=== PATIENT | female | born 1985 | race Caucasian/White ===

== ENCOUNTER 2018-03-22 22:53 | Emergency (ER) | payer BC, OTHER ==
--- NOTE | 2018-03-22 22:58 | ER Report ---
History and Physical Time Seen By MD: 22:58 HPI/ROS CHIEF COMPLAINT: Vaginal bleeding HISTORY OF PRESENT ILLNESS: 32-year-old female presents ambulatory to the ER complaining of vaginal bleeding. Patient states she is 13 weeks . She is concerned that her is not going right. She began spotting 12 hours ago. Tonight she had a large gush of blood. She is concerned she may be miscarriage in. Patient is from [facility]. She is followed by [place] [facility]. REVIEW OF SYSTEMS: Respiratory: No cough, no dyspnea. Cardiovascular: No chest pain, no palpitations. Gastrointestinal: As above Musculoskeletal: No back pain. Allergies: Coded Allergies: No Known Drug Allergies (Unverified , 03/22/18) Home Meds Active Scripts Hydrocodone Bit/Acetaminophen (NORCO 5-325 TABLET) 1 Each Tablet, 1 EACH PO Q4H PRN for PAIN, #15 TAB Prov:SHARRI DAWN DO 03/23/18 Reported Medications Levothyroxine Sodium (LEVOTHYROXINE SODIUM) 50 Mcg Tablet, 50 MCG PO QDAY, TAB 03/22/18 Vits W-Ca,Fe,Fa(<1MG) ( VITAMINS) 1 Each Tablet, 1 EACH PO DAILY, TAB 03/22/18 Reviewed Nurses Notes: Yes Old Medical Records Reviewed: Yes Constitutional Vital Sign - Last 24 Hours 03/22/18 03/23/18 22:59 00:50 Temp 98.3 Pulse 84 85 Resp 14 16 B/P (MAP) 140/107 132/85 (101) Pulse Ox 98 95 O2 Delivery Room Air Room Air Physical Exam General Appearance: The patient is alert, has no immediate need for airway p rotection and no current signs of toxicity. Vital signs stable, afebrile, pulse ox normal Eyes: Pupils equal and round no injection. Respiratory: Chest is non tender, lungs are clear to auscultation. Cardiac: regular rate and rhythm Gastrointestinal: Abdomen is soft and gravid consistent with dates and non tender, no masses, bowel sounds normal. On the pelvic exam not performed Musculoskeletal: Neck: Neck is supple and non tender. Extremities have full range of motion and are non tender. Skin: No rashes or lesions. DIFFERENTIAL DIAGNOSIS: After history and physical exam differential diagnosis was considered for vaginal bleeding including but not limited to ectopic , menses, miscarriage, demise and dysfunctional uterine bleeding. Medical Decision Making Data Points Result Diagram: 03/22/18231203/22/183 Laboratory Hematology Test 03/22/18 23:13 Red Blood Count 4.64 M/uL (4.17-5.56) Mean Corpuscular Volume 92.1 fL (80.0-96.0) Mean Corpuscular Hemoglobin 32.0 pg (26.0-33.0) Mean Corpuscular Hemoglobin Concent 34.7 g/dL (32.0-36.0) Red Cell Distribution Width 13.0 % (11.5-14.5) Mean Platelet Volume 8.2 fL (7.2-11.1) Neutrophils (%) (Auto) 58.5 % (39.4-72.5) Lymphocytes (%) (Auto) 29.4 % (17.6-49.6) Monocytes (%) (Auto) 9.8 % (4.1-12.4) Eosinophils (%) (Auto) 2.0 % (0.4-6.7) Basophils (%) (Auto) 0.3 % (0.3-1.4) Nucleated RBC Relative Count (auto) 0.0 /100WBC Neutrophils # (Auto) 4.8 K/uL (2.0-7.4) Lymphocytes # (Auto) 2.4 K/uL (1.3-3.6) Monocytes # (Auto) 0.8 K/uL (0.3-1.0) Eosinophils # (Auto) 0.2 K/uL (0.0-0.5) Basophils # (Auto) 0.0 K/uL (0.0-0.1) Nucleated RBC Absolute Count (auto) 0.00 K/uL Prothrombin Time 12.6 seconds (12.0-14.4) Prothromb Time International Ratio 0.94 Activated Partial Thromboplast Time 30 seconds (23-35) Sodium Level 137 mmol/L (137-145) Potassium Level 3.4 mmol/L (3.5-5.0) Chloride Level 100 mmol/L (98-107) Carbon Dioxide Level 27 mmol/L (22-31) Blood Urea Nitrogen 8 mg/dl (7-18) Creatinine 0.70 mg/dl (0.52-1.04) Glomerular Filtration Rate Calc > 60.0 Random Glucose 120 mg/dl (75-110) Calcium Level 9.2 mg/dl (8.4-10.2) Total Bilirubin 0.2 mg/dl (0.2-1.3) Aspartate Amino Transf (AST/SGOT) 25 U/L (0-35) Alanine Aminotransferase (ALT/SGPT) 37 U/L (0-56) Alkaline Phosphatase 74 U/L (0-126) Total Protein 7.5 g/dl (6.3-8.2) Albumin 4.2 g/dl (3.5-5.0) Human Chorionic Gonadotropin, Qual Positive (NEGATIVE) Human Chorionic Gonadotropin, Quant 1643 mIU/ml Chemistry Test 03/22/18 23:13 White Blood Count 8.1 k/uL (4.5-11.0) Red Blood Count 4.64 M/uL (4.17-5.56) Hemoglobin 14.8 g/dL (12.0-16.0) Hematocrit 42.8 % (34.0-47.0) Mean Corpuscular Volume 92.1 fL (80.0-96.0) Mean Corpuscular Hemoglobin 32.0 pg (26.0-33.0) Mean Corpuscular Hemoglobin Concent 34.7 g/dL (32.0-36.0) Red Cell Distribution Width 13.0 % (11.5-14.5) Platelet Count 224 K/uL (150-450) Mean Platelet Volume 8.2 fL (7.2-11.1) Neutrophils (%) (Auto) 58.5 % (39.4-72.5) Lymphocytes (%) (Auto) 29.4 % (17.6-49.6) Monocytes (%) (Auto) 9.8 % (4.1-12.4) Eosinophils (%) (Auto) 2.0 % (0.4-6.7) Basophils (%) (Auto) 0.3 % (0.3-1.4) Nucleated RBC Relative Count (auto) 0.0 /100WBC Neutrophils # (Auto) 4.8 K/uL (2.0-7.4) Lymphocytes # (Auto) 2.4 K/uL (1.3-3.6) Monocytes # (Auto) 0.8 K/uL (0.3-1.0) Eosinophils # (Auto) 0.2 K/uL (0.0-0.5) Basophils # (Auto) 0.0 K/uL (0.0-0.1) Nucleated RBC Absolute Count (auto) 0.00 K/uL Prothrombin Time 12.6 seconds (12.0-14.4) Prothromb Time International Ratio 0.94 Activated Partial Thromboplast Time 30 seconds (23-35) Glomerular Filtration Rate Calc > 60.0 Calcium Level 9.2 mg/dl (8.4-10.2) Total Bilirubin 0.2 mg/dl (0.2-1.3) Aspartate Amino Transf (AST/SGOT) 25 U/L (0-35) Alanine Aminotransferase (ALT/SGPT) 37 U/L (0-56) Alkaline Phosphatase 74 U/L (0-126) Total Protein 7.5 g/dl (6.3-8.2) Albumin 4.2 g/dl (3.5-5.0) Human Chorionic Gonadotropin, Qual Positive (NEGATIVE) Human Chorionic Gonadotropin, Quant 1643 mIU/ml Coagulation Test 03/22/18 23:13 Prothrombin Time 12.6 seconds Prothromb Time International Ratio 0.94 Activated Partial Thromboplast Time 30 seconds EKG/Imaging Imaging Results: Ultrasound of the Pelvic ultrasound was obtained. The results of the study are ultrasound: Indication: Cramping and bleeding. Technique: Transabdominal imaging, with Doppler. Comparison: None. Findings: A single intrauterine gestation is observed. The CRL measures 3.9 cm, corresponding to 10 weeks 6 days. However, no cardiac activity could be identified within the fetus, suggesting demise. The gestational sac is unremarkable, as visualized. There are no definite signs of hemorrhage. The maternal ovaries and adnexal structures appear unremarkable. There are no signs of ovarian torsion. There is no free fluid in the cul-de-sac. IMPRESSION: Findings suggestive of demise. No evidence of hemorrhage. The study was read by the radiologist. I viewed the images myself on the PACS system. ED Course/Re-evaluation Clinical Indication for ER IV: IV Access ED Course Patient was minute to an examination room. H&P was done. The differential diagnoses was considered. On conical examination. Patient's having some heavy dark vaginal spotting. She's been having some lower abdominal cramps. She is worried she be miscarriage in. Ultrasound is ordered. Patient's treated with IV fluid hydration. Her diagnostic study show normal H&H. The ultrasound shows demise with no evidence of a heartbeat. Her estimation is 13 weeks. The demise occurred approximate 10 weeks and 6 days. Patient informed of her unfortunate results. She is advised to follow-up with her [place] [facility] [facility] doctor in the next few days. She will likely gone a miscarriage. She is provided medication for pain relief. Should it be necessary. She is advised to go to the nearest ER for heavy bleeding, feeling near-syncope. Decision to Disposition Date: Mar 23, 2018 Decision to Disposition Time: 00:45 Depart Departure Latest Vital Signs Vital Signs Date Time Temp Pulse Resp B/P (MAP) Pulse Ox O2 Delivery O2 Flow Rate FiO2 03/23/18 00:50 85 16 132/85 (101) 95 Room Air 03/22/18 22:59 98.3 Impression: Primary Impression: demise Condition: Improved Disposition: HOME OR SELF-CARE Referrals: [facility]ON[facility] (PCP) New Scripts Hydrocodone Bit/Acetaminophen (NORCO 5-325 TABLET) 1 Each Tablet 1 EACH PO Q4H PRN for PAIN, #15 TAB Prov: SHARRI DAWN DO 03/23/18 Patient Instructions: Intrauterine Demise (ED) Additional Instructions: Follow-up with your [facility] at [place] early next week Go to the nearest ER for heavy bleeding or fever SHARRI DAWN DO Mar 22, 2018 22:58
[2018-03-22] MEDS ORDERED: PREN-127 PO (23:05)
[2018-03-22] MEDS ORDERED: LEVO50TA86 PO (23:06)
[2018-03-22] MEDS ORDERED: NS(*) 0.9% 1000 ML BAG 1,000 ML IV ONE (23:08)
[2018-03-22 23:22] LABS: PLATELET COUNT, AUTOMATED 224 K/uL (150-450)
[2018-03-22 23:31] LABS: INR 0.94
--- NOTE | 2018-03-23 00:40 | RADIOLOGY IMAGING REPORT ---
FACILITY: [facility] - [place] PATIENT NAME: Enma Whitmore : 1985 MR: [id number] V: [id number] EXAM DATE: ORDERING PHYSICIAN: SHARRI HARTLEY TECHNOLOGIST: Location: [facility] Patient: Enma Whitmore : 1985 Visit/Account:[id number] Date of Sevice: 03/22/2018 ultrasound: Indication: Cramping and bleeding. Technique: Transabdominal imaging, with Doppler. Comparison: None. Findings: A single intrauterine gestation is observed. The CRL measures 3.9 cm, corresponding to 10 weeks 6 day s. However, no cardiac activity could be identified within the fetus, suggesting demise. The ge stational sac is unremarkable, as visualized. There are no definite signs of hemorrhage. The maternal ovaries and adnexal structures appear unremarkable. There are no signs of ovarian torsio n. There is no free fluid in the cul-de-sac. IMPRESSION: Findings suggestive of demise. No evidence of hemorrhage. A preliminary report was called to Dr. Hartley at [facility] at 0034 hours. Report Dictated By: Maynor Honeycutt MD at 03/23/2018 12:28 AM Report E-Signed By: Maynor Honeycutt MD at 03/23/2018 12:37 AM WSN:[id number]
[2018-03-23] MEDS ORDERED: HYDR-653 PO (00:46)
[2018-03-23 00:50] VITALS: BP 132/85
== END 2018-03-23 00:54 | disposition home or self-care (01) ==
LOC: ER 23:20
DX: O03.9 Complete or unspecified spontaneous abortion without complication (principal)
CPT/HCPCS: 76801; 84702; 84703; 85025; 85610; 85730; 96360; 99284; J7030; 82040; 82247; 82310; 82374; 82435; 82565; 82947; 84075; 84132; 84155; 84295; 84450; 84460; 84520

== ENCOUNTER → 2018-09-20 | Outpatient (CLI) | payer BC ==
[~2018-09-20] MED LIST: HYDR-653 PO; LEVO50TA86 PO; PREN-127 PO
--- NOTE | 2018-09-20 10:07 | RADIOLOGY IMAGING REPORT ---
FACILITY: [facility] PATIENT NAME: Enma Krishnan : 1985 MR: [id number] V: [id number] EXAM DATE: [id number] ORDERING PHYSICIAN: GIL ESTRADA TECHNOLOGIST: Location: [facility] [place] Patient: Enma Krishnan : 1985 Visit/Account:[id number] Date of Sevice: 09/20/2018 Transvaginal pelvic ultrasound INDICATION: Positive BRCA gene mutation COMPARISON: None Available FINDINGS: Uterus measures 5.9 x 2.6 x 4.1 cm. Double wall endometrial stripe measures 4-5 mm. Trace amount of fluid within the endometrial canal. There is no free fluid in the cul-de-sac. Urinary bladder is empty. Pelvic vessels appear unremarkable on this examination. Right ovary measures 1.9 x 2.3 x 2.3 cm and shows normal blood flow and contains several small follic les. Left ovary measures 1.5 x 2.3 x 2.1 cm and shows normal blood flow and contains several small follicl es. IMPRESSION: 1. No ovarian/adnexal mass. 2. Trace amount of fluid within the endometrial canal, likely related to menstruation. Report Dictated By: Jerrod Simon MD at 09/20/2018 10:01 AM Report E-Signed By: Jerrod Simon MD at 09/20/2018 10:02 AM WSN:[id number]
== END ==
LOC: US 01:30
PROVIDERS: ATTEND Obstetrics & Gynecology
DX: Z15.01 Genetic susceptibility to malignant neoplasm of breast (principal)
CPT/HCPCS: 36415; 76830; 86304

== ENCOUNTER → 2018-10-17 | Outpatient (CLI) | payer BC ==
[~2018-10-17] MED LIST changes: +DIPH0.5S2 IM
--- NOTE | 2018-10-18 14:06 | RADIOLOGY IMAGING REPORT ---
FACILITY: [facility] PATIENT NAME: PIERRE WEST : [id number] MR: [id number] V: [id number] EXAM DATE: [id number] ORDERING PHYSICIAN: GIL ESTRADA TECHNOLOGIST: Geraldine Floyd PROCEDURE: BILATERAL DIGITAL SCREENING MAMMOGRAM WITH CAD ASSISTED INTERPRETATION & 3D TOMOSYNTHESIS REASON FOR STUDY: Screening FAMILY HISTORY OF BREAST CANCER: Maternal Grandmother at an early age, mother at age 51, patient is a BRCA gene positive. BREAST PROCEDURES/TREATMENTS: None COMPARISON: None VIEWS OBTAINED: Bilateral 2D & 3D full field CC & MLO in addition to bilateral 2D full field Right & Left XCC projections BREAST DENSITY: The breasts are heterogeneously dense which can obscure small masses. MAMMOGRAM FINDINGS: There is no demonstration of malignant appearing mass or calcification in either breast IMPRESSION: BIRADS 1: Negative. In light of the patient's clinical history breast MR may be considered. DIAGNOSTIC CATEGORY 1--NEGATIVE. RECOMMENDATIONS: ROUTINE MAMMOGRAM AND CLINICAL EVALUATION. Dictated by: Akiko Her M.D. on 10/17/2018 at 16:08 Transcribed by: GENI on 10/18/2018 at 12:57 Approved by: Akiko Her M.D. on 10/18/2018 at 14:05 [facility]
== END ==
LOC: MAMO 00:03
PROVIDERS: ATTEND Obstetrics & Gynecology
DX: Z12.31 Encounter for screening mammogram for malignant neoplasm of breast (principal); Z80.3 Family history of malignant neoplasm of breast
CPT/HCPCS: 77063; 77067

== ENCOUNTER → 2018-11-01 | Outpatient (CLI) | payer BC ==
[~2018-11-01] MED LIST changes: +GADOBENATE 529MG/1ML 15ML VIAL IVP ONE; +NS(*) 0.9% 50 ML BAG 50 ML ONE
--- NOTE | 2018-11-06 08:19 | RADIOLOGY IMAGING REPORT ---
FACILITY: [facility] [place] PATIENT NAME: PIERRE WEST : [id number] MR: [id number] V: [id number] EXAM DATE: ORDERING PHYSICIAN: GIL ESTRADA TECHNOLOGIST: Mary Hensley PROCEDURE:BREAST BILATERAL W/O AND/OR WITH CONTRAST COMPARISON:Bilateral screening mammogram 10/17/18. INDICATIONS:BRCA GENE MUTATION POSITIVE TECHNIQUE: All images performed prone in a dedicated breast coil. Axial and coronal T1 weighted images, axial T2, STIR, gradient echo imaging was performed. Axial fat saturated dynamically enhanced imaging of both breasts was performed using 5 dynamic sequences. The dynamic series was timed for a 90 second a peak. Subtraction imaging was preformed. 20mL of Multihance was utilized for the post contrast portion of the examination. Post processing was performed using a Direct Hit workstation. FINDINGS: Amount of fibroglandular tissue: Heterogeneous fibroglandular tissue. Background parenchymal enhancement: Mild. Masses: None. Non mass like enhancement: None. There are fatty replaced lymph nodes in the axillary regions bilaterally. No suspicious appearing lymph nodes are identified. No abnormal areas of enhancement are identified within the visualized portion of the liver or within the visualized bones. IMPRESSION: BIRADS 1: Negative. DIAGNOSTIC CATEGORY 1--NEGATIVE. RECOMMENDATIONS: CLINICAL EVALUATION. PLEASE NOTE:A NORMAL MRI DOES NOT EXCLUDE THE POSSIBILITY OF BREAST CANCER. A CLINICALLY SUSPICIOUS PALPABLE LUMP SHOULD BE BIOPSIED. CORRELATION WITH CLINICAL EXAM AND OTHER IMAGING STUDIES IS RECOMMENDED. Dictated by: Akiko Her M.D. on 11/01/2018 at 15:50 Transcribed by: CALVIN on 11/04/2018 at 11:09 Approved by: Akiko Her M.D. on 11/06/2018 at 8:18 [facility]
== END ==
LOC: MRI 01:52
PROVIDERS: ATTEND Obstetrics & Gynecology
DX: Z15.01 Genetic susceptibility to malignant neoplasm of breast (principal)
CPT/HCPCS: 77049; A9577; J7050